=== PATIENT | male | born 1995 | race Caucasian/White ===

== ENCOUNTER 2020-05-24 21:24 | Emergency (ER) | payer OTHER ==
[~2020-05-24] VITALS: Ht 180.3 cm; Wt 72.6 kg
[2020-05-25] MEDS ORDERED: ZOFRAN4 MG PO (04:17)
[2020-05-25] MEDS ORDERED: PEPCID AC20 MG PO (04:17)
[2020-05-25] MEDS ORDERED: INTESTINEX680 M2 PO (04:17)
== END 2020-05-25 05:16 | disposition home or self-care (01) ==
LOC: ER 21:24
DX: K52.89 Other specified noninfective gastroenteritis and colitis (principal)